=== PATIENT | male | born 1955 | race Caucasian/White ===

== ENCOUNTER 2018-01-17 11:53 | Emergency (ER) | payer MEDICARE, OTHER ==
[~2018-01-17] VITALS: Ht 190.5 cm; Wt 150.0 kg
[2018-01-17] MEDS ORDERED: [UNRECOGNIZED DRUG - REMARK] PO (12:37)
[2018-01-17 21:12] VITALS: BP 144/81
== END 2018-01-17 21:15 | disposition home or self-care (01) ==
LOC: EMS 11:56
DX: F10.129 Alcohol abuse with intoxication, unspecified (principal); E11.9 Type 2 diabetes mellitus without complications; I10 Essential (primary) hypertension
CPT/HCPCS: 36415; 99284; G0480

== ENCOUNTER 2018-01-22 21:01 | Emergency (ER) | payer OTHER, MEDICAID ==
[~2018-01-22] VITALS: Ht 190.5 cm; Wt 140.0 kg
[~2018-01-22 21:01] MED LIST: [UNRECOGNIZED DRUG - REMARK] PO
[2018-01-22 21:27] LABS: GLUCOSE,POINT OF CARE 219 MG/DL (70-110)
[2018-01-22 23:27] LABS: GLUCOSE,POINT OF CARE 179 MG/DL (70-110)
[2018-01-22 23:50] VITALS: BP 132/75
== END 2018-01-23 00:49 | disposition home or self-care (01) ==
LOC: EMS 21:02
DX: F10.10 Alcohol abuse, uncomplicated (principal); M79.674 Pain in right toe(s); E11.9 Type 2 diabetes mellitus without complications; I10 Essential (primary) hypertension
CPT/HCPCS: 36415; 82962; 99283; G0480